=== PATIENT | female | born 1995 | race Caucasian/White ===

== ENCOUNTER 2019-01-11 22:11 | Emergency (ER) | payer OTHER ==
[~2019-01-11] VITALS: Ht 165.1 cm; Wt 83.9 kg
[2019-01-11] MEDS ORDERED: [UNRECOGNIZED DRUG - REMARK] (22:56)
[2019-01-12 01:10] LABS: URINE BILIRUBIN NEGATIVE (Negative); URINE BLOOD 2+ (Negative); URINE CLARITY CLEAR; URINE COLOR YELLOW; URINE GLUCOSE-RANDOM NEGATIVE (Negative); URINE KETONES NEGATIVE (Negative); URINE LEUKOCYTES NEGATIVE (Negative); URINE NITRITE NEGATIVE (Negative); URINE PROTEIN TRACE (Negative); URINE UROBILINOGEN 0.2 E.U./dl (0.2-1.0)
[2019-01-12 01:37] LABS: CASTS None Seen /LPF (None Seen); MUCUS 0-3 Light strn/LPF (None Seen); URINE WBC >25 Many /HPF (0-5)
[2019-01-12 01:38] LABS: SQUAMOUS >10 Many /LPF (0-3)
[2019-01-12] MEDS ORDERED: CIPROFLOXACIN500 M1 PO (01:38)
[2019-01-12 01:39] LABS: CALCIUM OXALATE 0-3 Few /LPF (None Seen)
[2019-01-12 01:47] VITALS: BP 145/91
== END 2019-01-12 01:48 | disposition home or self-care (01) ==
LOC: M.ERS 22:11
PROVIDERS: Personal Emergency Response Attendant
DX: N39.0 Urinary tract infection, site not specified (principal); Z87.440 Personal history of urinary (tract) infections; Z90.49 Acquired absence of other specified parts of digestive tract